=== PATIENT | male | born 1940 | race Hispanic/Latino ===

== ENCOUNTER 2016-09-05 12:05 | Day surgery (SDC) | payer MEDICARE ==
[~2016-09-05] VITALS: Ht 171.4 cm; Wt 65.8 kg
[~2016-09-05 12:05] MED LIST: 0.9% Sodium Chloride 1,000 ML IV SCH; AGM875T PO; B2/V1TAB PO; Cetirizine Hcl PO; GLUC-210 PO; HYDR-4003 PO; LACT1CAP37 PO; MULT-666 PO; OMEG-38 PO; PANT40TA3 PO; PROM25TA14 PO; Sodium Chloride LOK Flush 10 mL Syringe IV PRN; fentaNYL-PF 50 mCg/mL 2 mL Inj IVPUSH PRN
[2016-09-05 12:36] VITALS: BP 119/81; PULSE 62; RESP 15; O2SAT 98
[2016-09-05 14:38] VITALS: BP 115/81; PULSE 69; RESP 17; O2SAT 95
[2016-09-05 14:47] VITALS: BP 106/72; PULSE 65; RESP 16; O2SAT 95
[2016-09-05 14:57] VITALS: BP 121/81; PULSE 75; RESP 16; O2SAT 97
--- NOTE | 2016-09-05 15:32 | ENDO ---
[address] [address] ENDOSCOPY PROCEDURE PATIENT: JONNY GRAYSON : 1940 MR#: [id number] ADMIT: 09/05/2016 JOB ID: [id number] DATE OF SERVICE: 09/05/2016 PRIMARY PROVIDER: Clayton Cobb MD. PROCEDURE: Esophagogastroduodenoscopy with biopsy. INDICATIONS: A 76-year-old male with chronic GERD, reporting for Bucio's screening. Otherwise seems to do well with decent control of symptoms on PPI. EQUIPMENT: [id number]. SEDATION: 1. Versed 2 mg. 2. Fentanyl 50 mcg. COMPLICATIONS: None identified. PROCEDURE INFORMATION: After the risks and benefits were explained, written and verbal informed consent was obtained. The patient was brought into the endoscopy suite and placed into the left lateral decubitus position. Sedation was achieved using the above-stated medications with the addition of oxygen via nasal cannula. The scope was introduced into the mouth through the bite block, and advanced under direct visualization through the oropharynx, esophagus, stomach, and on to the second portion of the duodenum. The scope was slowly withdrawn to carefully examine the mucosa for any defects or lesions. Retroflexed views were accomplished in the stomach. The stomach was decompressed. The scope removed from the patient who tolerated the procedure well. FINDINGS: 1. Duodenum: This appeared visually normal from the bulb through to the second portion. 2. Stomach: No ulcers. No mass lesions. No outlet obstruction. The patient had diffuse gastropathy, mild. This was biopsied for exclusion of helicobacter or any other underlying histopathology. In the region that we biopsied, the mucosa appeared to be healing from a prior erosive insult. Retroflexed views of the LES otherwise were unremarkable. 3. Esophagus: The squamocolumnar junction correlated with the top of the gastric folds for the most part. The GEJ was judged to be at about 40 cm from the incisors. There was a small tongue of possible Bucoi's extending into the more proximal esophagus in the 1 o'clock location. Photographs were taken. This would be classified as a C0M0.5 cm by Ophelia criteria. No other significant pathology was appreciated throughout the esophagus. ENDOSCOPIC DIAGNOSES: 1. Subtle sliding hiatal hernia. 2. 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 3. Gastropathy. RECOMMENDATIONS: 1. Await histopathology. 2. Continue anti-reflux therapy. 3. If helicobacter is found, it will need to be eradicated with standard triple therapy. 4. If nondysplastic Bucio's is identified, then a repeat surveillance EGD would be appropriate in 9-12 months.
--- NOTE | 2016-09-07 14:01 | PATH ---
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 Negative for evidence of Helicobacter. Negative for intestinal metaplasia. Negative for dysplasia and malignancy. 2.DISTAL ESOPHAGUS BIOPSY: FRAGMENTS OF SQUAMOUS MUCOSA AND GASTRIC CARDIA-TYPE MUCOSA, CHRONICALLY INFLAMED WITH REACTIVE EPITHELIAL CHANGES. Negative for specialized metaplasia of Bucio' s-type esophagus. Negative for dysplasia and malignancy. Rare eosinophil present within squamous epithelium consistent with changes of chronic reflux. ICD10 code K29.70 GROSS DESCRIPTION: The specimen is received in two formalin filled containers labeled with the patient's name. 1). The specimen is sublabeled "gastric" and consists of 2 portions of tissue which aggregate to 0.3 x 0.2 x 0.2 CM. The specimen is entirely submitted in cassette 1A. 2). The specimen is sublabeled "distal esophagus" and consists of a 0.1 x 0.1 x 0.1 CM portion of tissue which is entirely submitted in cassette 2A. 09/06/2016 [facility] MICRO DESCRIPTION: See diagnosis. ICD-9 CODES: CPT CODES: 1: 88753 2: 37783 Electronically Signed Out Arvind Sanches MD [facility] Pathology [facility] [address] [place] [address] Technical component performed at [facility], [address] [place] [address] Ave[address], [place], [address]
== END 2016-09-05 23:59 | disposition home or self-care (01) ==
LOC: END 12:05
PROVIDERS: ATTEND Internal Medicine Gastroenterology
DX: K29.50 Unspecified chronic gastritis without bleeding (principal); K21.9 Gastro-esophageal reflux disease without esophagitis; K44.9 Diaphragmatic hernia without obstruction or gangrene; K31.9 Disease of stomach and duodenum, unspecified; N40.1 Benign prostatic hyperplasia with lower urinary tract symptoms; N39.3 Stress incontinence (female) (male); R68.82 Decreased libido; Z85.46 Personal history of malignant neoplasm of prostate
CPT/HCPCS: 43239; J2250; J7030